=== PATIENT | female | born 1980 | race Caucasian/White ===

== ENCOUNTER → 2019-06-16 | Outpatient (CLI) | payer BC ==
--- NOTE | 2019-06-16 15:54 | XR ---
EXAMINATION TYPE: XR knee complete RT DATE OF EXAM: 06/16/2019 CLINICAL HISTORY: Right knee pain. TECHNIQUE: Three views of the right knee are obtained. COMPARISON: None. FINDINGS: There is no acute fracture/dislocation evident in the knee. Mild to moderate narrowing pat ellofemoral compartment with mild spurring. The overlying soft tissue appears unremarkable. IMPRESSION: As above.
== END | disposition home or self-care (01) ==
LOC: RADXRMAIN 15:42
PROVIDERS: ATTEND Orthopaedic Surgery
DX: M76.891 Other specified enthesopathies of right lower limb, excluding foot (principal)

== ENCOUNTER → 2019-06-30 | Outpatient (CLI) | payer BC ==
--- NOTE | 2019-06-30 08:18 | MR ---
EXAMINATION TYPE: MR shoulder RT wo con DATE OF EXAM: 06/30/2019 COMPARISON: None HISTORY: Right shoulder pain TECHNIQUE: Multiplanar, multisequence imaging of the right shoulder is performed without contrast. FINDINGS: There is a small amount of fluid in the subacromial bursa. There is thickening and increase d signal within the distal margin of the supraspinatus tendon measuring approximately 9 mm in length and 1.7 cm in transverse dimension compatible with tendinopathy. No split-thickness tear retraction. Intrasubstance tear suspected. Subscapularis tendon is intact. Infraspinatus tendon appears to be intact. There is also thickening a nd increased signal of the anterior fibers of the infraspinatus tendon compatible with tendinopathy. Glenohumeral ligaments are intact. Bony labrum are intact and nonarthrogram technique. No joint effus ion. There is no evidence of marrow edema or contusion. Tiny benign-appearing cyst measuring less than a c entimeter involving the humeral head. AC joint is maintained. Biceps tendon is well situated in the b icipital groove. Suprascapular notch is a normal appearance. IMPRESSION: 1. There is thickening and increased signal within the distal margin of the supraspinatus tendon exte nding a length of 9 mm and transverse dimension of 17 mm compatible severe tendinopathy and partial i ntrasubstance tear. No through thickness tear or retraction. 2. There is tendinopathy involving the anterior fibers of the distal margin of the infraspinatus tend on with no definite rotator cuff tear. 3. AC joint is maintained. There is a small spur extending off the acromion which does result in impi ngement of the supraspinatus tendon and muscle. IMPRESSION:
== END | disposition home or self-care (01) ==
LOC: RADMRIMAIN 07:07
PROVIDERS: ATTEND Orthopaedic Surgery
DX: M25.811 Other specified joint disorders, right shoulder (principal); M67.813 Other specified disorders of tendon, right shoulder

== ENCOUNTER → 2019-08-25 | Outpatient (CLI) | payer BC ==
[2019-08-25 15:02] VITALS: BP 106/70; PULSE 68; RESP 16; TEMP 98
--- NOTE | 2019-08-25 17:35 | P.HPOB ---
History of Present Illness H&P Date: 08/25/19 Chief Complaint: The patient is here for her routine gynecologic exam. This is a 39-year-old with an LMP of 08/16/2019. The patient is here to establish with this office. She has been using condoms for control. She and her are contemplating using a vasectomy for control. She states she is done having children. She states her menstrual periods have gotten heavier since her last child was born 2 years ago. Menstrual periods are regular every month lasting 7 days with 2 days of heavier flow on the third and fourth day of her menstrual period. She denies any significant pain with menstrual periods. On the heavy days, she has to change her protection up to every 2 hours and she occasionally will pass a clot. She also noticed a small breast lump about 6 weeks ago. This is located at approximately the 1 o'clock position of the left breast. She states it is pea size and denies any pain. Review of Systems The patient's weight has been stable over the last year. She denies respiratory, cardiac, or G.I. problems. Past Medical History Additional Past Medical History / Comment(s): PROLACTINOMA since age 22. Right rotator cuff problems. History of Any Multi-Drug Resistant Organisms: None Reported Past Surgical History: Section Additional Past Surgical History / Comment(s): Left ACL REPAIRx2. section 3. Past Anesthesia/Blood Transfusion Reactions: No Reported Reaction Past Psychological History: No Psychological Hx Reported Smoking Status: Never smoker Past Alcohol Use History: Occasional (2 per week) Past Drug Use History: None Reported Additional History: She has been since 2012. 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 - Past Family History Mother Family Medical History: Cancer Additional Family Medical History / Comment(s): Breast cancer. Medications and Allergies Home Medications Medication Instructions Recorded Confirmed Type Cabergoline 0.5 mg PO WEEKLY 08/25/19 08/25/19 History Naproxen Sodium [Aleve] 220 mg PO DAILY PRN 08/25/19 08/25/19 History Allergies Allergy/AdvReac Type Severity Reaction Status Date / Time No Known Allergies Allergy Verified 08/25/19 15:04 Exam Vital Signs Temp Pulse Resp BP Pulse Ox 08/25/19 15:00 98.0 F 68 16 106/70 98 Intake and Output 08/25/19 08/25/1908/25/20 06:59 14:59 22:59 Other: Weight 58.967 kg Height 5 feet 4 inches, weight 130 pounds, BMI 22.3. This is a well-developed well-nourished white female who is alert and oriented times 3 in no acute distress. HEENT: Within normal limits. NECK: Supple without mass or thyromegaly. CHEST AND LUNGS: Clear to auscultation. HEART: Regular rate and rhythm. BREASTS: There is left breast nodularity in the 1 o'clock position where the patient noticed a small breast lump. There is a small breast nodule measuring approximately 6 mm at the 1 o'clock position near the surface amongst moderate fibrous type changes. This is nontender. There is moderate fibrous type changes throughout the breasts bilaterally. There are no other distinct masses. There is no unusual puckering or dimpling. AXILLARY EXAM: Negative for adenopathy. BACK: Negative for CVA tenderness. ABDOMEN: Soft, nontender, without palpable masses. PELVIC EXAM: Normal external genitalia. Cervix and vagina appear normal. There is no unusual discharge. There is no evidence of prolapse. The uterus is midposition, nongravid size and nontender. There are no palpable adnexal masses or tenderness. RECTAL EXAM: negative for mass or tenderness. EXTREMITIES: Nontender. IMPRESSION: 1. 39-year-old female with mild hypermenorrhea on days 3 and 4 of her menstrual flow with normal gynecologic exam. 2. Small breast lump measuring impression a 6 mm at the 1 o'clock position of the left breast. Probable moderate fibrocystic changes. 3. History of hyperprolactinemia controlled with medications. PLAN: 1. Pap smear was performed. 2. Self breast awareness was discussed with the patient. 3. Left breast ultrasound will be performed to evaluate the nodular area at the 1 o'clock position. If this isn't not suspicious in nature, we will plan on starting regular screening mammograms at age 40. 4. We have discussed various options for her hypermenorrhea including oral contraception, Mirena IUD, endometrial ablation and meclofenamate sodium. We have decided to proceed with trial of meclofenamate sodium 100 mg by mouth 3 times a day when necessary for heavy menstrual flow up to 6 days per cycle. The prescription will be sent electronically to my her pharmacy in [place]. 5. The phone number for [facility] was given to the patient. She states she has been discussing vasectomy with her . If he does get a vasectomy I have recommended that she continue to use condoms until the vasectomy has found to be effective. 6. The patient will keep a menstrual calendar. 7. She was advised to return in one year for her annual well woman exam and as needed.
--- NOTE | 2019-08-26 07:50 | USB ---
Reason for exam: clinical finding. Physical Findings: Dr. Chavarria did breast exam. US Breast LT Left complete breast ultrasound includes all four quadrants, the retroareolar region and axilla. Finding demonstrates a 4 x 2 x 4mm oval, cystic lesion at 11 o'clock and a 3 x 2 x 4mm oval, cystic lesion at the posterior nipple. These results were verbally communicated with the patient and result sheet given to the patient on 08/25/19. ASSESSMENT: Benign, BI-RAD 2 RECOMMENDATION: Routine screening mammogram of both breasts in 1 year. Manage patient on a clinical basis.
--- NOTE | 2019-09-02 10:22 | P.PN ---
Progress Note - Text Progress Note Date: 09/02/19 OUTPATIENT FOLLOW-UP NOTE TEST(S)/RESULTS: Test results from 08/25/2019 include negative Pap smear and benign left breast ultrasound. METHOD OF NOTIFICATION: The patient was notified by phone. PATIENT COMMENTS: DIAGNOSIS: Negative Pap smear and benign left breast ultrasound. DISCUSSION: PLAN: She was advised to return in one year for her annual well woman exam.
== END | disposition home or self-care (01) ==
LOC: WWCWWP 14:42
PROVIDERS: ATTEND Obstetrics & Gynecology
DX: R92.8 Other abnormal and inconclusive findings on diagnostic imaging of breast (principal)

== ENCOUNTER → 2022-04-21 | Outpatient (CLI) | payer BC ==
--- NOTE | 2022-04-22 08:02 | MR ---
EXAMINATION TYPE: MR pituitary wo/w con DATE OF EXAM: 04/21/2022 COMPARISON: None available at time of dictation. Exam correlated with MRI pituitary report January 11 HISTORY: BENIGN NEOPLASM OF PITUITARY GLAND TECHNIQUE: Multiplanar, multisequence images of the brain and brainstem is performed without and with IV contras t, utilizing 6 mL intravenous Gadavist . Pituitary gland protocol. FINDINGS: Pituitary stalk shows homogeneous enhancement in the midline coronal image 14. There is no suspicious enlarged sellar mass. There is fairly homogeneous enhancement of the pituitary gland wit h asymmetry or asymmetric prominence on the right and somewhat empty sella appearance on the left, th is is best appreciated on coronal images 12 through 14. No definitive area of focal nonenhancement t o suggest microadenoma is clearly seen. Suprasellar cistern is maintained. Optic chiasm is not effa tu. Adjacent carotid siphons are unremarkable. There is no gross hydrocephalus. Craniocervical junction is within normal limits. IMPRESSION: Overall stable findings from prior report, no convincing evidence of pituitary macro or m icroadenoma. Asymmetry to pituitary gland within sella is redemonstrated.
== END | disposition home or self-care (01) ==
LOC: RADMRIMAIN 07:39
PROVIDERS: ATTEND Internal Medicine Endocrinology, Diabetes & Metabolism
DX: D35.2 Benign neoplasm of pituitary gland (principal)
CPT/HCPCS: 70553; A9585